=== PATIENT | male | born 1965 | race Asian ===

== ENCOUNTER 2020-10-02 00:12 | Day surgery (SDC) | payer OTHER, SELFPAY ==
[2020-09-23 14:09] VITALS: BMI 20.3
[2020-10-02 08:14] VITALS: BP 127/80; PULSE 59; RESP 16; TEMP 36.1; O2SAT 100; BMI 20.3
[2020-10-02] MEDS: LACTATED RINGERS 1,000 ML 150 ML IV CONT (08:19)
--- NOTE | 2020-10-02 08:33 | WPDANESEPPF ---
Anes - Initial Pre Proc Eval Procedure: Operation Date: 10/02/20 09:15 Proposed Procedures p Esophagogastroduodenoscopy - Jama Wang MD Date/Time: 10/02/20 08:33 Surgeon: Jama Wang MD Pre Op Diagnosis: bloating Patient Data Age: 55 Gender: M Height: 1.83 m Weight: 68 kg Last Vital Signs Temp 36.1 C L 10/02/20 08:14 Pulse 59 L 10/02/20 08:14 Resp 16 10/02/20 08:14 BP 127/80 10/02/20 08:14 Pulse Ox 100 10/02/20 08:14 Allergies Allergy/AdvReac Type Severity Reaction Status Date / Time No Known Allergies Allergy Verified 10/02/20 08:12 Home Medications Medication Instructions Recorded Confirmed Type cetirizine 10 mg tablet 10 mg PO DAILY 04/03/19 10/02/20 History omeprazole 20 mg capsule,delayed 20 mg PO DAILY 04/03/19 10/02/20 History release hydrocortisone 2.5 % topical cream 1 applic RECTAL DAILY PRN #30 g 03/23/20 10/02/20 Rx with perineal applicator cholecalciferol (vitamin D3) 10 mcg PO DAILY 09/23/20 10/02/20 History ferrous sulfate [Gentle Iron (iron 325 mg PO DAILY 09/23/20 10/02/20 History sulfate)] vitamin B complex [B 1 tablet PO DAILY 09/23/20 10/02/20 History Complex-Vitamin B12] Patient hx anesthesia problems: none Family hx anesthesia problems: none PMFSH Past Medical History Medical History Bloating Colon cancer screening GERD (gastroesophageal reflux disease) Hemorrhoids Hyperlipidemia IBS (irritable bowel syndrome) Seasonal allergies Small intestinal bacterial overgrowth (SIBO) Surgical History Surgical History History of appendectomy History of tonsillectomy Hx of LASIK Family History Family History Mother Patient's mother is in good health Father Family history of elevated blood lipids Social History Social History Smoking status: Never smoker Alcohol intake: current Alcohol use details: socially Substance use: never Substance use type: does not use Living arrangements: with family Spiritual care concerns: No Anes - Eval Final PreProcedure Day of Procedure 10/02/20 08:33 Patient weight: normal Heart: regular rate and rhythm Lungs: clear to auscultation Airway: Mallampati scale class 1 Neurological: alert and oriented Last oral intake: >/= 8 hours ASA classification: II Emergent: no Anesthetic plan: proceed Anesthesia type and monitoring: general GIVS and standard monitoring Informed Consent: The patient's anesthetic plan and its attendant risks and benefits were discussed with the patient/family/POA. Questions were solicited and answers provided to the satisfaction of the patient/family/POA.
--- NOTE | 2020-10-02 08:52 | PM.HPGS ---
History of Present Illness History of Present Illness Consent: Risks, benefits, and alternatives have been discussed and questions answered. Patient agrees to proceed with procedure. Chief complaint: bloating Narrative: Sanjuana Lemons is a 55 year old male with bloating, treated with xifaxan for SIBO last time with only marginal improvement still with flatulence. Review of Systems Constitutional: Constitutional: Denies headache(s) and Denies weakness Eyes: Eyes: Denies blurry vision ENT: Reports Normal hearing present, Denies headache(s) and Denies neck pain Cardiovascular: Cardiovascular: Denies chest pain and Denies dyspnea Respiratory: Respiratory: Denies dyspnea Gastrointestinal: Gastrointestinal: Reports no additional gastrointestinal complaints Genitourinary: Genitourinary: Denies dysuria Musculoskeletal: Musculoskeletal: Denies neck pain Integumentary/Breasts: Skin/Breast: Denies dry skin Neurologic: Reports Normal hearing present, Denies headache(s) and Denies weakness Psychiatric: Psychiatric: Denies anxiety Endocrine: Endocrine: Denies change in body appearance Hematologic/Lymphatic: Hematologic/Lymphatic: Denies easy bleeding Allergic/Immunologic: Allergic/Immunologic: Denies urticaria PMFSH Past Medical History Medical History Bloating Colon cancer screening GERD (gastroesophageal reflux disease) Hemorrhoids Hyperlipidemia IBS (irritable bowel syndrome) Seasonal allergies Small intestinal bacterial overgrowth (SIBO) Surgical History Surgical History History of appendectomy History of tonsillectomy Hx of LASIK Family History Family History Mother Patient's mother is in good health Father Family history of elevated blood lipids Social History Social History Smoking status: Never smoker Alcohol intake: current Alcohol use details: socially Substance use: never Substance use type: does not use Living arrangements: with family Spiritual care concerns: No Meds Home Medications and Allergies Home Medications Medication Instructions Recorded Confirmed Type cetirizine 10 mg tablet 10 mg PO DAILY 04/03/19 10/02/20 History omeprazole 20 mg capsule,delayed 20 mg PO DAILY 04/03/19 10/02/20 History release hydrocortisone 2.5 % topical cream 1 applic RECTAL DAILY PRN #30 g 03/23/20 10/02/20 Rx with perineal applicator cholecalciferol (vitamin D3) 10 mcg PO DAILY 09/23/20 10/02/20 History ferrous sulfate [Gentle Iron (iron 325 mg PO DAILY 09/23/20 10/02/20 History sulfate)] vitamin B complex [B 1 tablet PO DAILY 09/23/20 10/02/20 History Complex-Vitamin B12] Allergies Allergy/AdvReac Type Severity Reaction Status Date / Time No Known Allergies Allergy Verified 10/02/20 08:12 Vital Signs Vital Signs - 24 hr 10/02/20 08:14 Temperature 97 F L Pulse Rate 59 L Respiratory Rate 16 Blood Pressure 127/80 Pulse Oximetry 100 Exam Const: General: comfortable and no acute distress HENMT: General nose exam: Normal nares present Eyes: General: appearance normal, both eyes and all related structures Neck: Neck: no JVD Resp: Auscultation: clear to auscultation bilaterally Cardio: Rate: regular rate Rhythm: regular rhythm GI: Inspection: non-distended GI Palp: Yes Soft to palpation Skin: General skin exam: normal color Neuro: General: gait normal Speech: normal speech Extrem: General: normal to inspection Psych: Mental Status: mental status grossly normal Assessment and Plan Assessment and plan (1) Bloating: Code(s): R14.0 - Abdominal distension (gaseous) Status: Acute Assessment and Plan: egd with bx (2) Small intestinal bacterial overgrowth (SIBO): Code(
[2020-10-02 09:15] VITALS: BP 111/59; PULSE 63; RESP 14; O2SAT 96
[2020-10-02 09:25] VITALS: BP 107/64; PULSE 66; RESP 14; O2SAT 100
[2020-10-02 09:35] VITALS: BP 118/75; PULSE 55; RESP 18; O2SAT 100
== END 2020-10-02 09:51 | disposition home or self-care (01) ==
PROVIDERS: PCP Internal Medicine; Visit Provider Internal Medicine Gastroenterology
PROC: 0DJ08ZZ Inspection of Upper Intestinal Tract, Via Natural or Artificial Opening Endoscopic (ICD-10-PCS; CPT 43235; principal; 2020-10-02 09:15)
DX: R14.0 Abdominal distension (gaseous) (principal); K21.9 Gastro-esophageal reflux disease without esophagitis; K63.89 Other specified diseases of intestine; K58.9 Irritable bowel syndrome, unspecified; E78.5 Hyperlipidemia, unspecified
CPT/HCPCS: 43239; 88305; J2704; J7120

== ENCOUNTER 2021-05-17 01:44 | Day surgery (SDC) | payer OTHER, SELFPAY ==
[2021-05-06 13:35] VITALS: BMI 20.6
--- NOTE | 2021-05-06 13:40 | PC.NURSE ---
Report to the Outpatient Waiting Room, entrance under the green pavilion located off [facility], at time _1230_ on date _05-17-21_. OR Time: _1430_. - You and your visitor will be asked a series of questions to screen for COVID 19 for your protection. - A mask is required within the hospital. Preoperative COVID Testing Requirements: No COVID Test needed if: (proof is required; if not received patient will have Rapid Test prior to entry) - Patient has received COVID Vaccine at least 14 days prior to procedure date or - Patient has positive COVID test result within last 90 days of surgery date. COVID Test needed if above criteria is not met If not COVID vaccinated a COVID test must be conducted within 72 hours of surgery and patient is asked to isolate self from time of testing until procedure. You will go to the [facility] for your COVID testing. The [facility] Testing site is located at the corner of [address] [facility]. You will only be called if COVID results are positive and your surgeon may reschedule your elective surgery date. Patients may have clear liquids (water, carbonated beverages, clear teas, apple juice) until 3 hours prior to surgery with a maximum of 20 ounces. - No food from midnight until time of surgery - Infants may have breast milk until 4 hours before surgery, formula 6 hours prior to surgery. - Children will be allowed to drink immediately following surgery. If applicable, please bring a bottle or sippy cup to assist with drinking. Juice, water, soda, and popsicles are readily available. For infants on formula, please bring formula the day of surgery. Pacifiers are allowed. Take the following medications with a SIP of water the morning of surgery: Medications to discontinue per physician vitamin d and Iron Date to take last [id number] Please no make-up, nail bulgarian, hairspray, perfume, deodorant, or body powder the day of surgery. No jewelry (including any body piercings) or valuables the day of surgery, leave them at home. Please take a shower or bath the night before, or the morning of, surgery with an antibacterial soap. Wear comfortable, loose fitting clothing. Children are encouraged to wear pajamas. - Jewelry must be removed prior to entering the operating room. Rings and piercings that are not removed may be cut off. - The hospital will not accept responsibility for valuables. - Please leave all valuables, including medications, at home the day of surgery. If you are going home after surgery, a licensed otr van cdl truck driver must drive you home. - NO public transportation without another adult. - We recommend that an adult stay with you for 24 hours following discharge. - We also recommend that you do not drive, make important decision, drink alcoholic beverages, or take any drugs that were not prescribed by your health care provider for at least 24 hours after your discharge time. For Pediatric surgeries, we recommend two adults accompany the child home (only one inside the building at this time). One visitor will be allowed to accompany the patient into the hospital. Patients visitor will be instructed to remain with patient at all times or leave the building. We will allow the visitor to come back to the postoperative area when patient is ready. Follow any additional instructions given to you from your surgeon. Telephone instructions given to ____Patient and asked if any additional questions and then verbalized understanding. Patient advised to call surgeon office or pre surgery nurse liaison [phone] if any additional questions.
[2021-05-17] VITALS (8 sets, daily range): BP systolic 126–139; BP diastolic 72–84; PULSE 57–75; RESP 11–20; TEMP 36–36.5; O2SAT 100
--- NOTE | 2021-05-17 13:18 | WPDANESEPPF ---
Anes - Initial Pre Proc Eval Procedure: Operation Date: 05/17/21 14:30 Proposed Procedures p Rectal Examination Under Anesthesia, Lateral and Internal Sphincterotomy with Possible Internal Hemorrhoids Rubber Banding - Alvin Echols DO Date/Time: 05/17/21 13:18 Surgeon: Alvin Echols DO Pre Op Diagnosis: anal fissure, grade 2 internal hemorrhoids Patient Data Age: 56 Gender: M Height: 1.83 m Weight: 69 kg Allergies Allergy/AdvReac Type Severity Reaction Status Date / Time No Known Allergies Allergy Verified 05/06/21 13:33 Home Medications Medication Instructions Recorded Confirmed Type cetirizine 10 mg tablet 10 mg PO DAILY 04/03/19 05/06/21 History omeprazole 20 mg capsule,delayed 20 mg PO DAILY 04/03/19 05/06/21 History release hydrocortisone 2.5 % topical cream 1 applic RECTAL DAILY PRN #30 g 03/23/20 05/06/21 Rx with perineal applicator cholecalciferol (vitamin D3) 10 mcg PO DAILY 09/23/20 05/06/21 History ferrous sulfate [Gentle Iron (iron 325 mg PO DAILY 09/23/20 05/06/21 History sulfate)] Patient hx anesthesia problems: none Family hx anesthesia problems: none Results Review: All pre-operative results and documents have been reviewed as part of the pre-operative evaluation. [facility] Past Medical History Medical History Anal pain Bloating Colon cancer screening Encounter for screening colonoscopy GERD (gastroesophageal reflux disease) Hemorrhoids History of hepatitis B Hyperlipidemia IBS (irritable bowel syndrome) Seasonal allergies Small intestinal bacterial overgrowth (SIBO) Surgical History Surgical History History of appendectomy History of tonsillectomy Hx of LASIK Family History Family History Mother Patient's mother is in good health Arthritis Father Family history of elevated blood lipids Social History Social History Smoking status: Never smoker Alcohol intake: current Alcohol use details: socially Substance use: never Substance use type: does not use Living arrangements: with family Spiritual care concerns: No Anes - Eval Final PreProcedure Day of Procedure 05/17/21 13:18 Patient weight: normal Heart: regular rate and rhythm Lungs: clear to auscultation and normal air movement Airway: Mallampati scale class II Neurological: alert and oriented Last oral intake: >/= 8 hours ASA classification: II Emergent: no Anesthetic plan: proceed Anesthesia type and monitoring: general ETT Results Review: All pre-operative results and documents have been reviewed as part of the pre-operative evaluation. Informed Consent: The patient's anesthetic plan and its attendant risks and benefits were discussed with the patient/family/POA. Questions were solicited and answers provided to the satisfaction of the patient/family/POA.
[2021-05-17] MEDS: ACETAMINOPHEN 500 MG TABLET 1000 MG PO (13:31)
[2021-05-17] MEDS: LACTATED RINGERS 1,000 ML 30 ML IV CONT ×2 (13:35→14:55)
[2021-05-17] MEDS: KETOROLAC 15 MG/ML VIAL (*BKC) IV PUSH (13:40)
--- NOTE | 2021-05-17 13:48 | WPDHPUPDATE1 ---
History and Physical Update Update Date/Time: 05/17/21 13:48 History and Physical has been reviewed, including an updated exam of the patient. There are NO changes in the patient's condition. Risks, benefits, and alternatives have been discussed and questions answered. Patient agrees to proceed with procedure.
--- NOTE | 2021-05-17 13:48 | PM.IMHP ---
H&P: HPI History of Present Illness Date/Time: 05/17/21 13:48 Chief Complaint: Rectal bleeding and pain with bowel movements Narrative: This is a 56-year-old man who was previously seen in the office for rectal bleeding and painful bowel movements. He was found to have what likely appeared to be any anal fissure. He also has some internal hemorrhoids. He now presents for rectal exam under anesthesia and lateral internal sphincterotomy with possible internal hemorrhoid rubber banding. He denies any changes since last seen in the office. Review of Systems Review of Systems: All systems reviewed & are unremarkable except as noted in HPI and below Constitutional: Constitutional: Denies chills, Denies fever(s), Denies headache(s) and Denies weight loss Eyes: Eyes: Denies change in vision ENT: Denies dizziness, Denies headache(s), Denies neck mass and Denies throat swelling Cardiovascular: Cardiovascular: Denies chest pain, Denies lightheadedness and Denies dyspnea Respiratory: Respiratory: Denies cough, Denies dyspnea and Denies wheezing Gastrointestinal: Gastrointestinal: Denies abdominal pain, Denies change in bowel habits, Denies nausea and Denies vomiting Genitourinary: Genitourinary: Denies hematuria and Denies dysuria Musculoskeletal: Musculoskeletal: Reports as per HPI Integumentary/Breasts: Skin/Breast: Reports as per HPI Neurologic: Denies dizziness and Denies headache(s) Allergic/Immunologic: Allergic/Immunologic: Denies throat swelling and Denies wheezing PMFSH Past Medical History Medical History Anal pain Bloating Colon cancer screening Encounter for screening colonoscopy GERD (gastroesophageal reflux disease) Hemorrhoids History of hepatitis B Hyperlipidemia IBS (irritable bowel syndrome) Seasonal allergies Small intestinal bacterial overgrowth (SIBO) Surgical History Surgical History History of appendectomy History of tonsillectomy Hx of LASIK Family History Family History Mother Patient's mother is in good health Arthritis Father Family history of elevated blood lipids Social History Social History Smoking status: Never smoker Alcohol intake: current Alcohol use details: socially Substance use: never Substance use type: does not use Living arrangements: with family Spiritual care concerns: No Meds Home Medications and Allergies Home Medications Medication Instructions Recorded Confirmed Type cetirizine 10 mg tablet 10 mg PO DAILY 04/03/19 05/17/21 History omeprazole 20 mg capsule,delayed 20 mg PO DAILY 04/03/19 05/17/21 History release hydrocortisone 2.5 % topical cream 1 applic RECTAL DAILY PRN #30 g 03/23/20 05/17/21 Rx with perineal applicator cholecalciferol (vitamin D3) 10 mcg PO DAILY 09/23/20 05/17/21 History ferrous sulfate [Gentle Iron (iron 325 mg PO DAILY 09/23/20 05/17/21 History sulfate)] Allergies Allergy/AdvReac Type Severity Reaction Status Date / Time No Known Allergies Allergy Verified 05/17/21 13:29 Exam Const: General: no acute distress and alert Orientation/consciousness: patient oriented x3 HENMT: Head: normocephalic and atraumatic Ears: hearing grossly normal bilaterally General nose exam: Normal nares present Mouth: Yes Normal oral and palatal mucosa present Eyes: Periorbital: periorbital findings normal Sclera: sclerae normal EOM: EOMs intact bilaterally Neck: Neck: normal visual inspection, no lymphadenopathy and trachea midline Chest: Chest palpation & inspection: normal inspection of the chest Resp: Effort & Inspection: normal respiratory effort Auscultation: clear to auscultation bilaterally Cardio: Jugular venous distension: no JVD Rate: regular rate Rhythm: regular rh
[2021-05-17] MEDS: ceFAZolin 2 GM/D5W 50 ML 2 GM/50 ML BAG IVPB (14:09)
--- NOTE | 2021-05-17 14:57 | W.PM.PROC2 ---
Procedure Note - Detailed Date of Procedure 05/17/21 Pre-op Diagnosis anal fissure, grade 2 internal hemorrhoids Post-op Diagnosis Same Procedure Performed 1. Rectal exam under anesthesia 2. Left lateral internal sphincterotomy 3. Left posterior internal hemorrhoid rubber banding Surgeon Alvin Echols, DO Anesthesia General and Local (Exparel) Indications This is a 56-year-old man who presented with chronic rectal pain and bright red blood per rectum after bowel movements. He was found to have suspicion of an anal fissure and he was placed on nifedipine ointment. He tried this for several weeks but was not having any significant improvement. Discussions were then made with the patient about further treatment options and decision was made to proceed with rectal exam under anesthesia with lateral internal sphincterotomy and possible internal hemorrhoid rubber banding. Findings Rectal exam under anesthesia was performed. Upon inserting the anoscope, I was able to identify a left posterior prolapsing internal hemorrhoid. No other internal hemorrhoids were noted protruding within the anorectal canal. Rubber-band procedure was performed on the left posterior internal hemorrhoid. The patient did have a small chronic anterior midline anal fissure. His anal sphincter did appear somewhat spastic and tight as well. Left lateral internal sphincterotomy was performed. No other significant abnormalities were noted. No specimens were obtained for pathology. Description of Procedure Procedure as well as risks, benefits, and alternatives were discussed with the patient. Written consent was obtained and placed in chart prior to procedure. Patient was brought back to surgical suite. He was lying supine in his stretcher. Time-out was done to confirm patient and procedure. He was then intubated by the anesthesia department. He was then repositioned to prone judy-knife position on the operating table. His perirectal area was prepped and draped in sterile fashion using Betadine prep. Digital rectal exam was initially performed. A Hill-Solano anoscope was then inserted and the anal rectal canal was carefully inspected. Exparel was then infiltrated locally around the perirectal region. The left posterior internal hemorrhoid was then grasped and retracted while a band was deployed around the base of it. The Hill-Solano anoscope was then removed and then a Fansler anoscope was inserted. The chronic anterior midline anal fissure was identified. Decision was made to proceed with lateral internal sphincterotomy. The left lateral region was carefully inspected and the intersphincteric groove was palpated. A 1 cm incision was made directly over the internal sphincter muscle fibers using a 15 blade scalpel. Electrocautery was used for hemostasis. The internal sphincter muscle fibers were then isolated with a curved hemostat. The internal sphincter muscle fibers were then transected using electrocautery. This was incised far enough internally to relax the internal sphincter muscle fibers enough to allow for the anal fissure to heal. The anoscope was then removed and the area was carefully inspected and there appeared to be enough relaxation to hopefully help the fissure he will. The Hill-Solano anoscope was then reinserted and the anal mucosa was reapproximated using 3-0 chromic simple interrupted sutures. The area was irrigated with sterile saline and hemostasis appeared adequate. One final inspection was made around the anorectal canal and no other significant abnormalities were noted. The anoscope was then removed. Fluffed gauze, ABD pad, and mesh underwear were then applied. The patient was awakened from anesthesia, extubated, and transferred to recovery. Estimated Blood Loss 5 Complications No immediate complications Condition Stable Disposition Same day
[2021-05-17] MEDS: fentaNYL CITRATE INJ (*CRX) 100 MCG/2 ML VIAL 25 MCG IV PUSH ×3 (15:26→15:38)
[2021-05-17] MEDS: oxyCODONE HCL (*CRX) 5 MG TAB IR PO (16:38)
== END 2021-05-17 17:15 | disposition home or self-care (01) ==
PROVIDERS: PCP Internal Medicine; Visit Provider Surgery
PROC: (CPT 46080; principal; 2021-05-17 14:30)
DX: K60.2 Anal fissure, unspecified (principal); K64.1 Second degree hemorrhoids; K21.9 Gastro-esophageal reflux disease without esophagitis; Z86.19 Personal history of other infectious and parasitic diseases
CPT/HCPCS: 46080; A9270; C9290; J0330; J0690; J1100; J1885; J2250; J2405; J2704; J3010; J7120

== ENCOUNTER → 2021-10-27 06:58 | Outpatient (CLI) | payer OTHER, SELFPAY ==
--- NOTE | ~2021-10-27 | MR_ITS ---
EXAMINATION: MR shoulder LT wo con DATE: 10/27/2021 07:33 INDICATION: Left shoulder pain and limited range of motion TECHNIQUE: Magnetic resonance imaging (MRI) of the left shoulder was performed without intravenous co ntrast. Sequences included axial PD-weighted FS FSE, coronal oblique PD-weighted FS FSE, coronal obli que T2-weighted FS FSE, sagittal PD-weighted FS FSE, and sagittal T1-weighted SE. COMPARISON: None. FINDINGS: Coracoacromial arch: The acromion undersurface is flat in morphology (type I). The coracoacromial ligament is normal. Acro mioclavicular joint is normal. Rotator cuff: The supraspinatus, infraspinatus and teres minor tendons are normal. The subscapularis tendon is norm al. Normal rotator cuff muscle bulk and signal. Biceps tendon, glenoid labrum and glenohumeral cartilage: Long head of the biceps tendon is normal. There is a tear at the 11:00-12:00 position of the superior glenoid labrum. Mild partial-thickness cartilage loss with smooth chondral surface at the cephalad h marlo of the glenoid and along the inferomedial aspect of the humeral head. Fluid: Physiologic amount of fluid in the glenohumeral joint and biceps tendon sheath. No loose osteochondr al bodies. No abnormal fluid signal in the subacromial/subdeltoid bursa to suggest bursitis. Bones: Normal marrow signal with no edema, fracture or abnormal marrow replacing process. IMPRESSION: 1. Mild left glenohumeral osteoarthritis with SLAP tear at the superior glenoid labrum. Reviewed, dictated and finalized at location A.
== END ==
PROVIDERS: PCP Internal Medicine; Visit Provider Clinical Nurse Specialist
DX: M19.012 Primary osteoarthritis, left shoulder (principal); S43.432A Superior glenoid labrum lesion of left shoulder, initial encounter
CPT/HCPCS: 73221

== ENCOUNTER 2024-03-04 09:04 | Emergency (ER) | payer OTHER, SELFPAY ==
[2024-03-04 09:10] VITALS: BP 125/76; PULSE 117; RESP 20; TEMP 39.1; O2SAT 99
--- NOTE | 2024-03-04 09:23 | ED_ITS ---
HPI - URI/Sore Throat General Chief Complaint: Upper Respiratory Infection Stated Complaint: Chills/Headache Time Seen by Provider: 03/04/24 09:29 Source: patient and RN notes reviewed Mode of arrival: ambulatory Limitations: no limitations History of Present Illness HPI Narrative: 59-year-old male presents with concern for 2 day history of chills, body aches, sinus congestion, cough, headache. Reports he had a long trip home from [place] recently. He reports he has been taking DayQuil. MD elicited complaint: fever and cough Related Data Home Medications ?Medication ?Instructions ?Recorded ?Confirmed ?Last Taken ?Type omeprazole 20 mg capsule,delayed 20 mg PO DAILY 04/03/19 10/16/23 05/16/21 History release cetirizine 10 mg tablet (Zyrtec) 10 mg PO DAILY PRN 10/12/21 10/16/23 Unknown History Allergies Allergy/AdvReac Type Severity Reaction Status Date / Time No Known Allergies Allergy Verified 03/04/24 09:09 Review of Systems Review of Systems: CONSTITUTIONAL: Reports malaise, chills, fever. EYES: Denies visual changes, redness, or discharge. ENT: Reports congestion, sinus pain CARDIOVASCULAR: Denies chest pain, palpitations, or edema. RESPIRATORY: Reports cough. Denies dyspnea. GASTROINTESTINAL: Denies abdominal pain, nausea, vomiting, diarrhea SKIN: Denies rash or itching. MUSCULOSKELETAL: Reports myalgia. NEUROLOGIC: Reports headache. All systems reviewed & are unremarkable except as noted in HPI and below PMFSH Past Medical History Medical History (Updated 03/04/24 @ 09:39 by Aysha Cummins NP) Dog bite History of hepatitis B Anal pain Encounter for screening colonoscopy Small intestinal bacterial overgrowth (SIBO) Bloating Colon cancer screening GERD (gastroesophageal reflux disease) IBS (irritable bowel syndrome) Seasonal allergies Hyperlipidemia Hemorrhoids Surgical History Surgical History H/O rectal sphincterotomy REUA lateral internal sphincterotomy 05/17/21 History of tonsillectomy History of appendectomy Hx of LASIK Family History Family History Mother Patient's mother is in good health Arthritis Father Family history of elevated blood lipids Social History Social History Smoking status: Never smoker Alcohol intake: current Alcohol use details: socially Substance use: never Substance use type: does not use Do You Feel Safe in your Home?: Yes Lack of Transportation: No Lack of Food: Never True Current Housing: I Have Housing Concerned About Future Housing: No Difficulty Paying Gas/Electric Bills: No Difficulty Paying for Meds: No Currently Unemployed: No Education: Master's Degree or Higher Difficulty w/ Childcare or Family Care: No Living arrangements: with family Occupation/Education: occupation Gender identity (if verbalized by the patient): Male Spiritual care concerns: No Comments At time of signature, agree with nursing past medical, surgical, social and family history. There is no relevant family history pertinent to the presenting complaint Exam Narrative: GENERAL: Nontoxic-appearing, well-nourished, and in no acute distress. HEAD: Normocephalic EYES: PERRLA, conjunctivae clear ENT: Nares clear. Mucous membranes moist. TM pearly lyons with sharp light reflex bilaterally; no tragal tenderness. Oropharynx not erythematous without lesions. Tonsils not enlarged and without exudate, no drooling, no hoarseness, no trismus, uvula midline. NECK: Supple. No lymphadenopathy CHEST: Clear to auscultation, breath sounds equal. No wheezing, rhonchi, rales, or stridor. No respiratory distress, speaks in full sentences. HEART: Regular rate and rhythm. No murmur heard. SKIN: Warm, dry, no rash. NEURO: Alert and oriented x3. PSYCH: Normal mood and affect Course Course Emergency Course: Patient is aware of diagnosis, understands and agrees to treatment plan. Anticipatory guidance given. Patient agrees to follow-up as directed and is aware of reasons to seek care at the emergency department. Portions of this record may have been created with voice recognition software Level of Care: Express Care Visit Vital Signs Vital signs: Vital Signs Temperature 102.4 F H 03/04/24 09:10 Pulse Rate 117 H 03/04/24 09:10 Respiratory Rate 20 03/04/24 09:10 Blood Pressure 125/76 03/04/24 09:10 Pulse Oximetry 99 03/04/24 09:10 Oxygen Delivery Room Air 03/04/24 09:10 Temperature 102.4 F H 03/04/24 09:10 Pulse Rate 117 H 03/04/24 09:10 Respiratory Rate 20 03/04/24 09:10 Blood Pressure 125/76 03/04/24 09:10 Pulse Oximetry 99 03/04/24 09:10 Oxygen Delivery Room Air 03/04/24 09:10 Reviewed. MDM - URI/Sore Throat MDM Narrative Medical decision making narrative: Differential diagnosis considered: Alvarado virus, strep pharyngitis, allergic rhinitis, upper respiratory tract infection, sinusitis, rhinosinusitis, nasopharyngitis. viral pharyngitis, otitis media, otitis externa, pneumonia, bronchitis, viral cough syndrome, viral syndrome, and influenza. Exam findings show no acute concerns or changes; patient is non-toxic appearing and is in no distress. Patient is appropriate for outpatient treatment and follow-up. Lab Data Attestation: I reviewed the patient's lab results. Critical Care Time Critical Care Time Critical Care Time: No Discharge Plan Discharge Clinical Impression: Influenza A Patient Disposition: Home, Self-Care Condition: Stable Instructions: Influenza (ED) Additional Instructions: -Take strict precautions to prevent the spread of your virus. Be diligent about covering your cough (even when you are alone) and washing your hands frequently. -You may contagious until you have been symptom and/or fever free for 24 hours without fever reducing medicine -Alternate Ibuprofen and Tylenol for pain and fever relief (per package directions) -Drink plenty of fluid - drink fluid with electrolytes such as Gatorade or other oral re-hydration solution. Avoid caffeine, which can make dehydration worse. -Get plenty of rest to help your body heal. -Use a cool mist humidifier for chest and nasal congestion. -Eat RAW honey or use cough drops to ease throat discomfort -Do not smoke or expose children to secondhand smoke -Wash your hands frequently. -Please follow-up with your primary care doctor in the next 1-2 days if your symptoms do not improve. -If you have any worsening of symptoms or any other concerns please go to the ED immediately. -Please take medications as prescribed and continue taking your home medications as usual. Patient Language: Mongolian Prescriptions: New pseudoephedrine HCl [12 Hour Decongestant] 120 mg tablet extended release 120 mg PO Q12H PRN (Reason: nasal congestion) Qty: 20 0RF dextromethorphan-guaifenesin [Mucinex DM] 60-1,200 mg tablet extended release 12 hr 1 tablet PO Q12H Qty: 12 0RF No Action amoxicillin-pot clavulanate 875-125 mg tablet 1 tablet PO Q12H Qty: 14 0RF omeprazole 20 mg capsule,delayed release(DR/EC) 20 mg PO DAILY cetirizine [Zyrtec] 10 mg tablet 10 mg PO DAILY PRN Follow-up/Referrals: Andrew Ty DO [Primary Care Provider] - Stand Alone Forms: Work/School Release IP Time of Disposition: 09:40
[2024-03-04 09:37] LABS: EDCOVIDSCREEN Negative (Negative); EDINFLUASCREEN Positive (Negative); EDINFLUBSCREEN Negative (Negative)
== END 2024-03-04 09:56 | disposition home or self-care (01) ==
PROVIDERS: Emergency Provider Nurse Practitioner; PCP Internal Medicine
DX: J10.1 Influenza due to other identified influenza virus with other respiratory manifestations (principal); Z20.822 Contact with and (suspected) exposure to COVID-19; K21.9 Gastro-esophageal reflux disease without esophagitis; E78.5 Hyperlipidemia, unspecified
CPT/HCPCS: 87426; 87804; 99213; G0463

== ENCOUNTER 2024-10-16 08:22 | Outpatient (CLI) | payer OTHER, SELFPAY ==
--- OUTSIDE RECORDS SUMMARY | 2024-10-16 08:26 | XMS_ITS | Clinical Summary ---
Author Organization [facility] Address [address] [address] Care Team Providers Care School Laboratory Technician Name Role Phone Andrew Ty DO Primary Care Provider [phone] Source Comments [facility],non-owned Affiliates and Associated Physician Practices is amultiple site organization consisting of ambulatory clinics and hospital sitesin [place], [place], [place] and [place]. This disclosure is being madepursuant to the Care Everywhere program and may not contain all information available regarding this patient. Last updated 17.[facility] Allergies No known active allergies Medications * Be aware that medications may not be up to date on this document. Alwaysverify current medications with the patient. OMEPRAZOLE PO Active Cetirizine HCl (ZYRTEC ALLERGY PO) Active Social History Tobacco Use Types Packs/Day Years Used Date Smoking Tobacco: Never Assessed Sex and Gender Information Value Date Recorded Sex Assigned at Not on file Legal Sex Male 12:16 PM CDT Gender Identity Not on file Sexual Orientation Not on file Last Filed Vital Signs Vital Sign Reading Time Taken Comments Blood Pressure 118/70 07/13/2018 3:37 PM CDT Pulse 72 07/13/2018 3:37 PM CDT Temperature 37 C (98.6 F) 07/13/2018 3:37 PM CDT Respiratory Rate 16 07/13/2018 3:37 PM CDT Oxygen Saturation 97% 07/13/2018 3:37 PM CDT Inhaled Oxygen Concentration - - Weight 68 kg (150 lb) 10/17/2018 7:59 AM CDT Height 182.9 cm (6') 10/17/2018 7:59 AM CDT Body Mass Index 20.34 10/17/2018 7:59 AM CDT Plan of Treatment Health Maintenance Due Date Last Done Comments COLOGUARD (AGES 45-75) - COL ON CA SCREENING 1965 COLON MONITORING 1965 COLONOSCOPY - COLON CA SCREENING 1965 CT COLONOGRAPHY - COLON CA SCREENING 1965 Colorectal Cancer Screening 1965 FIT - COLON CA SCREENING 1965 FLEX SIG - COLON CA SCREENING 1965 LIPID TESTING 1965 HIV SCREENING 02/17/1980 HEPATITIS C SCREENING 02/12/1983 DTAP/TDAP/TD VACCINES (1 - Tdap) 02/17/1984 HEPATITIS B VACCINE (1 of 3 - 19+ 3-dose series) 02/17/1984 PNEUMOCOCCAL VACCINE 50+ (1 of 1 - PCV) 2015 ZOSTER VACCINE (1 of 2) 2015 COVID-19 VACCINE (1 - 2023-2 5 season) 2023 DEPRESSION SCREENING 02/21/2024 INFLUENZA VACCINE (#1) 2024 HIB VACCINE Aged Out No longer eligi ble based on patient's age to complete this topic HPV VACCINE Aged Out No longer eligi ble based on patient's age to complete this topic MENINGOCOCCAL (Group B) VACC INE SHARED DECISION-MAKING Aged Out No longer eligibl e based on patient's age to complete this topic MENINGOCOCCAL GROUPS A/C/Y/W VACCINE Aged Out No longer eligible b ased on patient's age to complete this topic Insurance [employer] Care Teams School Laboratory Technician Relationship Specialty Start Date End Date Andrew Ty DO PCP - General 10/19/20
--- OUTSIDE RECORDS SUMMARY | 2024-10-16 08:26 | XMS_ITS | Clinical Summary ---
Author Organization [facility] Address [address] [place] [id number] Care Team Providers Care Instrument Room Technician Name Role Phone Andrew Ty DO Primary Care Provider [phone] Allergies No known active allergies Medications No known medications Active Problems No known active problems Social History Tobacco Use Types Packs/Day Years Used Date Smoking Tobacco: Never Tobacco Cessation:Counseling Given: Not Answered Personal Safety Answer Date Recorded Getting School Help Needed Not on file 02/26 Sex and Gender Information Value Date Recorded Sex Assigned at Not on file Legal 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 Gender Identity Not on file Sexual Orientation Not on file Obstetrics History Last Filed Vital Signs Vital Sign Reading Time Taken Comments Blood Pressure - - Pulse - - Temperature - - Respiratory Rate - - Oxygen Saturation - - Inhaled Oxygen Concentration - - Weight 68 kg (150 lb) 03/08/2022 11:55 AM OUTDOOR ILLUMINATING ENGINEER Height 182.9 cm (6') 03/08/2022 11:55 AM OUTDOOR ILLUMINATING ENGINEER Body Mass Index 20.34 03/08/2022 11:55 AM OUTDOOR ILLUMINATING ENGINEER Plan of Treatment Health Maintenance Due Date Last Done Comments Colon Cancer Screening-Colonoscopy 1965 Depression Screening 1965 Hepatitis C Screening 1965 Prostate Cancer Screening-PSA 1965 DTaP/Tdap/Td Vaccine (1 - Tdap) 02/17/1976 Hepatitis B Screening 1983 Regular Well Visit/Exam 18-64 1983 Zoster Vaccine (2 of 2) 10/14/2021 08/19/2021 Covid-19 Vaccine (2023-2 5 season) 2023 12/31/2021, 03/31/2020, 03/03/2020 Influenza Vaccine (#1) 2024 Pneumococcal vaccine <65 Aged Out No longer eligible based on patient's age to complete this topic [place] [address] [place] [id number] Care Teams Instrument Room Technician Relationship Specialty Start Date End Date Andrew Ty DO PCP - General Internal Medicine 01/25/22
[2024-10-16 14:20] LABS: Hematocrit 44.1 % (42.0-52.0); Hemoglobin 13.4 g/dL (14.0-18.0); Immature Granulocyte Percent A 0.2 % (0-0.5); Lymphocytes Absolute Auto 2.34 K/mm3 (0.9-3.2); Mean Corpuscular HGB Conc 30.4 g/dl (32-36); Mean Corpuscular Hemoglobin 25.7 pg (26-34); Mean Corpuscular Volume 84.6 fl (80-100); Nucleated Red Blood Cells Absolute Auto 0.000 K/mm3 (0.0-0.012); Nucleated Red Blood Cells Perc 0.0 % (0.0-0.2); Platelet Count Result 261 k/mm3 (150-375); Red Blood Count 5.21 M/mm3 (4.6-6.20); White Blood Count 5.1 K/mm3 (4.5-10.0)
[2024-10-16 16:06] LABS: Alanine Aminotransferase 20 U/L (6-50); Albumin Level 4.3 g/dL (3.5-5.1); Alkaline Phosphatase 65 U/L (38-126); Anion Gap 7 mmol/L (4-12); Aspartate Amino Transferase 59 U/L (17-59); Bilirubin,Total 0.5 mg/dL (0.2-1.3); Blood Urea Nitrogen 11 mg/dL (9-20); Calcium 9.4 mg/dL (8.4-10.2); Carbon Dioxide 28 mmol/L (22-30); Chloride 102 mmol/L (98-107); Cholesterol 226 mg/dL (0-200); Estimated Glomerular Filt Rate > 60; Glucose 80 mg/dL (65-110); HDL Direct 59 mg/dL; Potassium 4.7 mmol/L (3.4-5.0); Sodium 137 mmol/L (137-145); Total Protein 7.6 g/dL (6.3-8.2); Triglycerides 44 mg/dL (<150)
[2024-10-16 16:43] LABS: Prostate Specific Antigen 2.8 ng/mL (< OR = 4.0)
== END 2024-10-16 08:23 | disposition home or self-care (01) ==
LOC: ANHGOSHLAB 08:23
PROVIDERS: PCP Internal Medicine; Visit Provider Clinical Nurse Specialist
DX: K58.9 Irritable bowel syndrome, unspecified (principal); Z13.29 Encounter for screening for other suspected endocrine disorder; Z13.220 Encounter for screening for lipoid disorders; Z12.5 Encounter for screening for malignant neoplasm of prostate
CPT/HCPCS: 36415; 80053; 80061; 84153; 85025; G0103

== ENCOUNTER 2024-11-11 11:47 | Outpatient (CLI) | payer OTHER, SELFPAY ==
--- OUTSIDE RECORDS SUMMARY | 2024-11-11 12:45 | XMS_ITS | Clinical Summary ---
Author Organization [facility] Address [address] [place] [id number] Care Team Providers Care Ornament Stapler Name Role Phone Andrew Ty DO Primary Care Provider [phone] Allergies No known active allergies Medications No known medications Active Problems No known active problems Social History Tobacco Use Types Packs/Day Years Used Date Smoking Tobacco: Never Tobacco Cessation:Counseling Given: Not Answered Personal Safety Answer Date Recorded Getting School Help Needed Not on file 02/26 Sex and Gender Information Value Date Recorded Sex Assigned at Not on file Legal Sex Male 10:33 AM PLASTERER TENDER Gender Identity Not on file Sexual Orientation Not on file Obstetrics History Last Filed Vital Signs Vital Sign Reading Time Taken Comments Blood Pressure - - Pulse - - Temperature - - Respiratory Rate - - Oxygen Saturation - - Inhaled Oxygen Concentration - - Weight 68 kg (150 lb) 03/08/2022 11:55 AM PLASTERER TENDER Height 182.9 cm (6') 03/08/2022 11:55 AM PLASTERER TENDER Body Mass Index 20.34 03/08/2022 11:55 AM PLASTERER TENDER Plan of Treatment Health Maintenance Due Date Last Done Comments Colon Cancer Screening-Colonoscopy 1965 Depression Screening 1965 Hepatitis C Screening 1965 Prostate Cancer Screening-PSA 1965 DTaP/Tdap/Td Vaccine (1 - Tdap) 02/17/1976 Hepatitis B Screening 1983 Regular Well Visit/Exam 18-64 1983 Zoster Vaccine (2 of 2) 10/14/2021 08/19/2021 Covid-19 Vaccine ( - 2024-2 6 season) 2024 12/31/2021, 03/31/2020, 03/03/2020 Influenza Vaccine (#1) 2024 Pneumococcal vaccine <65 Aged Out No longer eligible based on patient's age to complete this topic [place] [address] [place] [id number] Care Teams Ornament Stapler Relationship Specialty Start Date End Date Andrew Ty DO PCP - General Internal Medicine 01/25/22
--- OUTSIDE RECORDS SUMMARY | 2024-11-11 12:45 | XMS_ITS | Clinical Summary ---
Author Organization [facility] Address [address] [place] [address] Care Team Providers Care Tow Car Driver Name Role Phone Andrew Ty DO Primary Care Provider [phone] Source Comments [facility],non-owned Affiliates and Associated Physician Practices is amultiple site organization consisting of ambulatory clinics and hospital sitesin [place], [place], [place] and [place]. This disclosure is being madepursuant to the Care Everywhere program and may not contain all information available regarding this patient. Last updated 17.[facility] Allergies No known active allergies Medications * [...] 2015 ZOSTER VACCINE (1 of 2) 2015 DEPRESSION SCREENING 02/21/2024 COVID-19 VACCINE (1 - 2023-2 5 season) 2024 INFLUENZA VACCINE (#1) 2024 HIB VACCINE Aged [...] patient's age to complete this topic Insurance [employer] Care Teams Tow Car Driver Relationship Specialty Start Date End Date Andrew Ty DO PCP - General 10/19/20
--- OUTSIDE RECORDS SUMMARY | 2024-11-11 12:45 | XMS_ITS | Clinical Summary ---
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 Gender Identity Not on file Sexual Orientation Not on file Plan of Treatment Health Maintenance Due Date Last Done Comments Colorectal Cancer Screening Colonoscopy (10 Years) 1965 Annual Physical 02/17/1968 Hepatitis C 1983 DTaP, Tdap and Td Vaccines ( 1 - Tdap) 02/17/1984 Pneumococcal Vaccine: 50+ Years (1 of 1 - PCV) 2015 Zoster Vaccines (1 of 2) 2015 COVID-19 Vaccine (3 - 2024-2 6 season) 2024 03/31/2020, 03/03/2020 Meningococcal B Vaccine Aged Out No l onger eligible based on patient's age to complete this topic Meningococcal Vaccine Aged Out No emiliano antonieta eligible based on patient's age to complete this topic RSV Immunizations Under 20 Months Aged Out No longer eligible b ased on patient's age to complete this topic
[2024-11-11 13:17] LABS: Alanine Aminotransferase 20 U/L (6-50); Albumin Level 4.4 g/dL (3.5-5.1); Alkaline Phosphatase 73 U/L (38-126); Anion Gap 7 mmol/L (4-12); Aspartate Amino Transferase 61 U/L (17-59); Bilirubin,Total 0.9 mg/dL (0.2-1.3); Blood Urea Nitrogen 12 mg/dL (9-20); Calcium 9.2 mg/dL (8.4-10.2); Carbon Dioxide 30 mmol/L (22-30); Chloride 100 mmol/L (98-107); Estimated Glomerular Filt Rate > 60; Glucose 93 mg/dL (65-110); Potassium 4.3 mmol/L (3.4-5.0); Sodium 137 mmol/L (137-145); Total Protein 7.8 g/dL (6.3-8.2)
[2024-11-11 13:18] LABS: Hematocrit 44.7 % (42.0-52.0); Hemoglobin 13.9 g/dL (14.0-18.0); Immature Granulocyte Percent A 0.7 % (0-0.5); Lymphocytes Absolute Auto 2.45 K/mm3 (0.9-3.2); Mean Corpuscular HGB Conc 31.1 g/dl (32-36); Mean Corpuscular Hemoglobin 26.0 pg (26-34); Mean Corpuscular Volume 83.7 fl (80-100); Nucleated Red Blood Cells Absolute Auto 0.000 K/mm3 (0.0-0.012); Nucleated Red Blood Cells Perc 0.0 % (0.0-0.2); Platelet Count Result 270 k/mm3 (150-375); Red Blood Count 5.34 M/mm3 (4.6-6.20); White Blood Count 5.6 K/mm3 (4.5-10.0)
[2024-11-13 07:09] LABS: Deamidated Gliadin Abs, IgA 3 units (0-19); Deamidated Gliadin Abs, IgG 1 units (0-19); Immunoglobulin A, Qn 162 mg/dL (90-386)
== END 2024-11-11 11:48 | disposition home or self-care (01) ==
LOC: ANHGOSHLAB 11:48
PROVIDERS: PCP Internal Medicine; Visit Provider Clinical Nurse Specialist
DX: K58.9 Irritable bowel syndrome, unspecified (principal); R14.0 Abdominal distension (gaseous)
CPT/HCPCS: 36415; 80053; 82784; 85025; 86231; 86258